=== PATIENT | female | born 1975 | race Caucasian/White ===

== ENCOUNTER 2020-06-22 23:23 | Emergency (ER) | payer SELFPAY ==
[2020-06-23 00:57] LABS: ALT (SGPT) 13 U/L (8-55); AST (SGOT) 17 U/L (5-34); Albumin 3.9 g/dL (3.5-5.0); Alkaline Phosphatase 56 U/L (40-110); Anion Gap 15 mmol/L (10-20); BUN (Urea Nitrogen) 12 mg/dL (7.0-18.7); Bilirubin, Total 0.3 mg/dL (0.2-1.2); CK (CPK) 50 U/L (29-168); Calc. Creatinine Clearance 0 mL/min (70-130); Calcium 9.3 mg/dL (7.8-10.44); Carbon Dioxide 20 mmol/L (22-29); Chloride 107 mmol/L (98-107); Globulin 3.2 g/dL (2.4-3.5); Glucose 102 mg/dL (70-105); Hemoglobin 12.6 g/dL (12.0-16.0); Mean Corpuscular HGB CONC 34.6 g/dL (32.0-36.0); Mean Corpuscular Hemoglobin 33.9 pg (27.0-31.0); Mean Corpuscular Volume 98.2 fL (78.0-98.0); Potassium 4.5 mmol/L (3.5-5.1); Protein, Total 7.1 g/dL (6.0-8.3); Red Blood Cell (RBC) Count 3.72 mill/uL (4.20-5.40); Sodium 137 mmol/L (136-145)
[2020-06-23 00:58] LABS: Acetaminophen Less than 6.0 mcg/mL (10.0-30.0); Alcohol Less than 10 mg/dL (Less than 10); Salicylate Less than 8.0 mg/dL (15.0-30.0)
[2020-06-23 01:06] LABS: Bilirubin Negative (Negative); Blood, Urine Negative (Negative); Clarity Turbid (Clear); Glucose, Urine (Dipstick) Normal (Negative); Ketone, Urine Negative (Negative); Leukocyte 250 Leu/uL (Negative); Nitrite 1+ (Negative); Protein, Urine (Dipstick) 30 mg/dL (Neg-Trace); RBC/HPF 0-3 HPF (0-3); Specific Gravity, Urine 1.024 (1.002-1.036); WBC/HPF Greater than 50 HPF (0-3); pH, Urine 7.5 (5.0-9.0)
[2020-06-23 01:10] LABS: Bacteria/HPF 1+ HPF (None Seen); Cocaine Metabolite Screen Not Detected (NotDetected); Medtox Reader # READER 4; Phencyclidine (PCP) Not Detected (NotDetected); Pregnancy Test - Urine (BHCG) Negative (Negative); Pregu Control Background? CLEAR/WHITE (CLR/WHITE); Pregu Control Bar Appear? YES (CONTROL BAR); Specific Gravity 1.024 (1.002-1.036); THC/Cannabinoid Screen Not Detected (NotDetected)
[2020-06-23 01:11] LABS: Amphetamine Detected (NotDetected); Barbiturates Screen Not Detected (NotDetected); Benzodiazepine Screen Not Detected (NotDetected); Medtox Control Line Valid? VALID (VALID); Methadone Not Detected (NotDetected); Methamphetamine Detected (NotDetected); Opiate Screen Not Detected (NotDetected); Oxycodone Screen Not Detected (NotDetected); Tricyclic Screen Not Detected (NotDetected)
[2020-06-23] MEDS ORDERED: cefTRIAXone\\ROCEPHIN 1 GM VIAL ONE (01:18)
[2020-06-23 01:20] LABS: Band 6 % (5-11); Eosinophils 2 % (0-10); Lymphocytes 25 % (21-51); MDiff Complete? YES; Mean Platelet Volume 8.9 fL (7.4-10.4); Monocytes 1 % (0-10); Neutrophil 66 % (42-75); Platelet Count 166 thou/uL (130-400); Platelet Morphology Comment Appears Adequate; RBC Distribution Width 11.8 % (11.5-14.5)
== END 2020-06-23 03:54 | disposition home or self-care (01) ==
LOC: ERS 23:23
DX: R44.1 Visual hallucinations (principal); N39.0 Urinary tract infection, site not specified; F31.9 Bipolar disorder, unspecified; Z79.899 Other long term (current) drug therapy; Z79.82 Long term (current) use of aspirin
CPT/HCPCS: 36415; 80053; 80178; 80306; 80307; 81003; 81015; 81025; 82550; 84443; 85025; 96374; J0696

== ENCOUNTER 2020-07-04 18:01 | Emergency (ER) | payer SELFPAY ==
[2020-07-04] MEDS ORDERED: Dexamethasone 4 mg/ml Vial ONE (19:15)
[2020-07-04] MEDS ORDERED: Ketorolac Tromethamine 30 MG/ML VIAL ONE (19:15)
== END 2020-07-04 20:45 | disposition home or self-care (01) ==
LOC: ERS 18:01
DX: M54.5 Low back pain (principal); G89.29 Other chronic pain
CPT/HCPCS: 72100; 96372; J1100; J1885

== ENCOUNTER 2020-10-02 23:11 | Emergency (ER) | payer OTHER, SELFPAY ==
[2020-10-03] MEDS ORDERED: Acetaminophen 500 MG TAB ONE (03:20)
[2020-10-03] MEDS ORDERED: Ibuprofen 800 MG TAB ONE (03:20)
== END 2020-10-03 04:25 | disposition home or self-care (01) ==
LOC: ERS 23:11
DX: S20.211A Contusion of right front wall of thorax, initial encounter (principal); S80.02XA Contusion of left knee, initial encounter; V80.010A Animal-rider injured by fall from or being thrown from horse in noncollision accident, initial encounter
CPT/HCPCS: 71045; 93005

== ENCOUNTER 2021-03-02 14:39 | Emergency (ER) | payer SELFPAY | END 2021-03-02 15:24 | disposition home or self-care (01) | LOC: ERS 14:39 | DX: B86 Scabies (principal) | CPT/HCPCS: 99282 ==

== ENCOUNTER 2021-09-19 08:18 | Emergency (ER) | payer BC, SELFPAY ==
[2021-09-19] MEDS ORDERED: Proparacaine 0.5% Opth 15 ML BOT ONE (08:32)
[2021-09-19] MEDS ORDERED: Fluorescein Opthalmic Strip ONE (08:32)
== END 2021-09-19 09:10 | disposition home or self-care (01) ==
LOC: ERS 08:18
DX: S05.02XA Injury of conjunctiva and corneal abrasion without foreign body, left eye, initial encounter (principal); X58.XXXA Exposure to other specified factors, initial encounter
CPT/HCPCS: 99283